=== PATIENT | male | born 1995 | race African-American/Black ===

== ENCOUNTER 2021-05-05 15:33 | Emergency (ER) | payer SELFPAY ==
[2021-05-05 16:00] VITALS: BP 136/80; PULSE 60; TEMP 98; BMI 33.1
== END 2021-05-05 18:15 | disposition home or self-care (01) ==
LOC: JER 15:33
DX: S96.911A Strain of unspecified muscle and tendon at ankle and foot level, right foot, initial encounter (principal); W18.42XA Slipping, tripping and stumbling without falling due to stepping into hole or opening, initial encounter; X50.0XXA Overexertion from strenuous movement or load, initial encounter
CPT/HCPCS: 73610-TC-RT-FY; 73630-TC-RT-FY; 99283-25

== ENCOUNTER 2024-02-01 21:03 | Emergency (ER) | payer SELFPAY ==
[2024-02-01 21:11] VITALS: BP 145/82; PULSE 76; RESP 18; TEMP 98.1; BMI 30.9
[2024-02-01] MEDS ORDERED: DIPHTH,PERTUSS(ACELL),TET 0.5 ML DISP.SYRIN IM ONE (23:06)
[2024-02-01] MEDS: DIPHTH,PERTUSS(ACELL),TET VAC 0.5 ML VIAL IM ONE (23:07)
== END 2024-02-01 23:09 | disposition home or self-care (01) ==
LOC: JER 21:03
PROC: 0HQ1XZZ Repair Face Skin, External Approach (ICD-10-PCS; principal; 2024-02-01)
PROC: 3E0234Z Introduction of Serum, Toxoid and Vaccine into Muscle, Percutaneous Approach (ICD-10-PCS; 2024-02-01)
DX: S01.81XA Laceration without foreign body of other part of head, initial encounter (principal); W06.XXXA Fall from bed, initial encounter; Z23 Encounter for immunization
CPT/HCPCS: 99284-25

== ENCOUNTER 2024-02-08 19:11 | Emergency (ER) | payer SELFPAY ==
[2024-02-08 19:15] VITALS: BP 134/79; PULSE 76; RESP 20; TEMP 98.5; BMI 30.1
== END 2024-02-08 19:36 | disposition home or self-care (01) ==
LOC: JERFT 19:11
DX: Z48.02 Encounter for removal of sutures (principal)
CPT/HCPCS: 99281-25